=== PATIENT | female | born 1960 | race Caucasian/White ===

== ENCOUNTER 2017-08-24 08:34 | Outpatient (CLI) | payer BC | END 2017-08-24 08:35 | disposition home or self-care (01) | LOC: BICMAMMO 08:34 | PROVIDERS: ATTEND Physician Assistant | DX: Z12.31 Encounter for screening mammogram for malignant neoplasm of breast (principal) | CPT/HCPCS: 77063; 77067 ==

== ENCOUNTER 2018-08-26 12:26 | Outpatient (CLI) | payer BC ==
--- NOTE | 2018-08-26 17:19 | MMO ---
Bilateral MAMMO Bilat Screen [id number]. CLINICAL HISTORY: Patient is 58 years old and is seen for screening. The patient has no family history of breast cancer. The patient has no personal history of cancer. VIEWS: The views performed were: bilateral craniocaudal with tomosynthesis and bilateral mediolateral oblique with tomosynthesis. FILMS COMPARED: The present examination has been compared to a prior imaging study performed at [facility] on 08/24/2017. MAMMOGRAM FINDINGS: There are scattered fibroglandular densities. There are no suspicious masses, suspicious calcifications, or new areas of architectural distortion. IMPRESSION: THERE IS NO MAMMOGRAPHIC EVIDENCE OF MALIGNANCY. A ROUTINE FOLLOW-UP MAMMOGRAM IN 1 YEAR IS RECOMMENDED. THE RESULTS OF THIS EXAM WERE SENT TO THE PATIENT. ACR BI-RADS Category 1 - Negative MAMMOGRAPHY NOTE: 1. A negative mammogram report should not delay a biopsy if a dominant of clinically suspicious mass is present. 2. Approximately 10% to 15% of breast cancers are not detected by mammography. 3. Adenosis and dense breasts may obscure an underlying neoplasm.
== END 2018-08-26 12:27 | disposition home or self-care (01) ==
LOC: BICMAMMO 12:26
PROVIDERS: ATTEND Physician Assistant
DX: Z12.31 Encounter for screening mammogram for malignant neoplasm of breast (principal)
CPT/HCPCS: 77063; 77067

== ENCOUNTER 2018-08-28 09:00 | Outpatient (CLI) | payer BC ==
--- NOTE | 2018-08-28 11:00 | MRI ---
MRI LUMBAR SPINE WITHOUT CONTRAST: HISTORY: Acute left-sided low back pain. Associated sciatica. Symptoms radiate down the left leg. Left foot tingling. COMPARISON: None. FINDINGS: Appropriate T1 marrow signal intensity of the lumbar vertebrae. Lumbar spine vertebral body height i s maintained. There is no fracture. No significant STIR hyperintensity to suggest vertebral body ed jeannie or ligamentous injury. 1.5 mm of retrolisthesis of L3 upon L4 and 3.1 mm of anterolisthesis of L 4 upon L5. Symmetric signal intensity of the paraspinal muscles. Conus medullaris terminates at the T12-L1 disk space. T12-L1: Adequate disk hydration. No significant central canal stenosis or neural foraminal narrowin g. L1-L2: Adequate disk hydration. No significant central canal stenosis or neural foraminal narrowing . L2-L3: Adequate disk hydration. No significant central canal stenosis or neural foraminal narrowing . L3-L4: Adequate disk hydration. No significant central canal stenosis or neural foraminal narrowing . L4-L5: Desiccation with mild loss of disk space height. There is a generalized disk bulge with a ce ntral disk protrusion. There is associated T2 and STIR hyperintensity suggesting an annular fissure. There is moderate central canal stenosis. Bilateral facet hypertrophy with fluid in both facet trish nts is noted. Mild right foraminal narrowing. The left neural foramen is patent. There is a small synovial cyst posterior to the right facet joint at L4-L5 measuring approximately 1 cm. L5-S1: Mild desiccation with mild loss of disk space height. There is a central disk protrusion wit h associated T2 and STIR hyperintensity compatible with an annular fissure. There is no significant central canal stenosis. Mild bilateral foraminal narrowing. IMPRESSION: 1. Annular fissure at L4-L5 and L5-S1. 2. Moderate central canal stenosis at L4-L5. POS: [facility]
== END 2018-08-28 09:01 | disposition home or self-care (01) ==
LOC: BICMRI 09:00
PROVIDERS: ATTEND Physician Assistant
DX: M54.42 Lumbago with sciatica, left side (principal); M48.061 Spinal stenosis, lumbar region without neurogenic claudication; Q05.7 Lumbar spina bifida without hydrocephalus
CPT/HCPCS: 72148